=== PATIENT | female | born 1960 | race Caucasian/White ===

== ENCOUNTER → 2016-12-29 | Outpatient (CLI) | payer OTHER ==
[~2016-12-29] MED LIST: CHOL1000 PO; LISI-729 PO
== END | disposition home or self-care (01) ==
LOC: C.PAPS 11:49
PROVIDERS: ATTEND Physician Assistant
DX: Z01.419 Encounter for gynecological examination (general) (routine) without abnormal findings (principal)

== ENCOUNTER → 2016-12-29 | Outpatient (CLI) | payer OTHER ==
--- NOTE | 2016-12-29 13:56 | MAMMOGRAPHY REPORT ---
BILATERAL DIGITAL SCREENING MAMMOGRAM TOMOSYNTHESIS WITH CAD: 12/29/2016 CLINICAL HISTORY: Routine screening. Patient has no complaints. TECHNIQUE: Breast tomosynthesis in addition to standard 2D mammography was performed. Current study was also evaluated with a Computer Aided Detection (CAD) system. COMPARISON: Comparison is made to exams dated: 10/15/2015 mammogram, 09/19/2014 mammogram, 09/18/2013 [place], 09/15/2012 mammogram, 09/14/2011 mammogram, and 08/04/2010 mammogram - [facility]. BREAST COMPOSITION: There are scattered areas of fibroglandular density in both breasts. FINDINGS: No suspicious masses, calcifications, or areas of architectural distortion are noted in e ither breast. There has been no significant interval change compared to prior exams. Small nodular asymmetry seen within the right medial breast on the cc view is stable dating back to at least the and 2007 exams. IMPRESSION: ACR BI-RADS CATEGORY 2: BENIGN There is no mammographic evidence of malignancy. A 1 year screening mammogram is recommended. The p atient will receive written notification of the results. Approximately 10% of breast cancers are not detected with mammography. A negative mammographic repor t should not delay biopsy if a clinically suggestive mass is present. Kady Field M.D. /:12/29/2016 13:31:29 Ripsaw Operator: Nadja Hu RT(R)(M), [facility] letter sent: Normal 1/2 BI-RADS Code: ACR BI-RADS Category 2: Benign
== END | disposition home or self-care (01) ==
LOC: C.MAMM 07:56
PROVIDERS: ATTEND Physician Assistant
DX: Z12.31 Encounter for screening mammogram for malignant neoplasm of breast (principal)

== ENCOUNTER → 2017-02-11 | Outpatient (CLI) | payer OTHER ==
[2017-02-11 12:21] LABS: HEMATOCRIT 38.5 % (37-47); MEAN CELL VOLUME 88.9 fL (80-100); MEAN CORPUSCULAR HEMOGLOBIN 29.3 pg (25-34); MEAN PLATELET VOLUME 9.4 fL (7.4-10.4); PLATELET COUNT 261 K/uL (130-400); RED BLOOD COUNT 4.33 M/uL (4.2-5.4); WHITE BLOOD COUNT 3.68 K/uL (4.8-10.8)
[2017-02-11 12:29] LABS: ALT/SGPT 22 U/L (12-78); BLOOD UREA NITROGEN 12 mg/dl (7-18); BUN/CREATININE RATIO 17.5 (10-20); CARBON DIOXIDE 28 mmol/L (21-32); CHLORIDE 107 mmol/L (98-107); CHOLESTEROL 183 mg/dl (0-200); CREATININE 0.67 mg/dl (0.60-1.20); GLUCOSE 91 mg/dl (70-99); POTASSIUM 3.6 mmol/L (3.5-5.1); SODIUM 143 mmol/L (136-145); TRIGLYCERIDES 102 mg/dl (0-150); VERY LOW DENSITY LIPOPROT CALC 20 mg/dl
[2017-02-11 12:39] LABS: CHOLESTEROL/HDL RATIO 2.7; HDL CHOLESTEROL 68 mg/dl; LDL CHOLESTEROL CALCULATED 95 mg/dl
== END | disposition home or self-care (01) ==
LOC: C.LAB1850 10:59
PROVIDERS: ATTEND Obstetrics & Gynecology
DX: I10 Essential (primary) hypertension (principal); N95.0 Postmenopausal bleeding

== ENCOUNTER → 2017-02-28 | Day surgery (SDC) | payer OTHER ==
[2017-02-10 09:02] VITALS: Ht 157.5 cm; Wt 72.7 kg
[~2017-02-28] VITALS: Ht 157.5 cm; Wt 72.7 kg
[~2017-02-28] MED LIST changes: +ATROPINE SULFATE 0.1 MG/ML 5ML SYR IV PRN; +DEXAMETHASONE SOD INJ 4 MG/ML VIAL ONE; +EpHEDrine SULFATE INJ 50 MG/ML AMP IV PRN; +FENTANYL CITRATE INJ 50 MCG/1 ML 2 ML VIAL IV PRN; +FENTANYL CITRATE INJ 50 MCG/1 ML 2 ML VIAL ONE; +IBUPROFEN 600 MG TAB PO PRN; +KETOROLAC TROMETHAMINE 30 MG/ML VIAL IV. PRN; +LACTATED RINGER'S 1000ML 1,000 ML IV SCH; +LIDOCAINE HCL 2% 2 ML VIAL (20MG/ML) ONE; +LIDOCAINE HCL 2% LOCAL 20 ML VIAL ONE; +MIDAZOLAM HCL 1 MG/ML 2ML VIAL ONE; +ONDANSETRON INJ 2 MG/ML 2 ML VIAL IV PRN; +ONDANSETRON INJ 2 MG/ML 2 ML VIAL ONE; +OXYCODONE/ACETAMINOPHEN 5-325 TAB PO PRN; +PROPOFOL IV EMULSION 10 MG/ML 20 ML VIAL IV ONE; +SODIUM CHLORIDE 0.9% 1000ML 1,000 ML IV SCH
--- NOTE | 2017-02-28 07:47 | History & Physical Bridge - [place] ---
H&P Re-Evaluation Bridge Note: I have examined the patient, reviewed the History & Physical and in the interval since the performance of the History & Physical I have noted the following changes of clinical significance: She was given cipro for possible UTI by her PCP, the culture and dip was negative.
--- NOTE | 2017-02-28 08:27 | Discharge Instructions ---
Discharge Instructions Date of Service Feb 28, 2017. Admission Reason for Admission: Post Menopausal Bleeding Discharge Discharge Diagnosis / Problem: after surgery Discharge Goals Goal(s): Routine recovery after surgery Activity Recommendations Activity Limitations: as noted below . Instructions / Follow-Up Instructions / Follow-Up ACTIVITY RECOMMENDATIONS: * Avoid tampons, douching, hot tubs, pools, and intercourse until bleeding has stopped. * May shower as usual. * No strenuous activity for 24-48 hours. After 24-48 hours, you may do anything you feel like doing (driving and sports are okay). SPECIAL CARE INSTRUCTIONS: Special Diet: * Mild nausea may occur in the immediate post-operative period. * Take clear liquids such as tea, cola or bouillon until all nausea has subsided; you may then resume your normal diet. Special Care: * Light bleeding and vaginal spotting can last from a few days to 3-4 weeks. Call your doctor if bleeding becomes heavier than the heaviest part of your period. * Check your temperature twice a day for one week. If it goes above 100.4 degrees Fahrenheit (38.0 Celsius), notify your doctor. * Call your doctor's office for an appointment for 2 weeks after your surgery. FOLLOW-UP VISIT: Call your doctor's office for an appointment for 2 weeks after your surgery. Current Hospital Diet Patient's current hospital diet: Discharge Diet Recommended Diet: Regular Diet Procedures Procedures Performed: Dilatation And Curettage, Hysteroscopy, Polypectomy Pending Studies Studies pending at discharge: yes List of pending studies: pathology Laboratory Results Lipid Panel Test 02/11/17 11:03 Range/Units Triglycerides Level 102 0-150 mg/dl Cholesterol Level 183 0-200 mg/dl HDL Cholesterol 68 mg/dl Cholesterol/HDL Ratio 2.7 LDL Cholesterol, Calculated 95 mg/dl Medical Emergencies . Who to Call and When: Medical Emergencies: If at any time you feel your situation is an emergency, please call 911 immediately. . Non-Emergent Contact Non-Emergency issues call your: Block Greaser . . "Provider Documentation" section prepared by Gunjan Rice. . VTE Core Measure Inpt VTE Proph given/why not?: Treatment not indicated
[2017-02-28 08:28] VITALS: TEMP 37
--- NOTE | 2017-02-28 08:28 | [facility] Post Operative Brief Note ---
Immediate Operative Summary Operative Date Feb 28, 2017. Pre-Operative Diagnosis Post Menopausal Bleeding, abnormal u/s of pelvis Post-Operative Diagnosis same Procedure(s) Performed Dilatation And Curettage, Hysteroscopy, Polypectomy Surgeon Dr. Delbert Rice Sugar Refiner Surgeon(s) 0 Estimated Blood Loss 0 Findings fundal polyp, sessile possible right WICHO polyp, moderate curettings. normal tubal ostia bilaterally. saline deficit 90cc Fluids (cc crystalloids) 400 Specimens A. Endometrial Curettings and Polyp Drains none Anesthesia IV sedation and paracervical block Complication(s) None Disposition Recovery Room / PACU
--- NOTE | 2017-02-28 08:46 | OPERATIVE REPORT ---
DATE OF OPERATION: 02/28/2017 PREOPERATIVE DIAGNOSES: 1. Postmenopausal bleeding. 2. Abnormal ultrasound findings. POSTOPERATIVE DIAGNOSES: Same. PROCEDURES: 1. Dilatation and curettage. 2. Hysteroscopy. 3. endometrial polypectomy. SURGEON: Dr. Gunjan Rice. INSURANCE POLICY CLERK: None. ANESTHESIA: IV sedation and paracervical block. INDICATIONS: A 56-year-old postmenopausal female with postmenopausal bleeding. Ultrasound suggested 2 endometrial polyps. She desired surgical evaluation. FINDINGS: Uterus sounded to 7.5 cm. Normal tubal ostia bilaterally. The appearance of a polyp emanating from the fundus on hysteroscopy and a possibly sessile polyp on the right lower uterine segment. Moderate curettings and polypoid tissue removed and sent for pathological evaluation. Saline hysteroscopic fluid deficit 90 mL. DESCRIPTION OF PROCEDURE: The patient was taken to the operating room and identified. After adequate sedation, she was placed in dorsal lithotomy position and prepped and draped in the usual sterile fashion. The cervix was visualized with a weighted speculum and anterior retractor and was grasped at its anterior lip with an Allis clamp. A paracervical block of approximately 20 mL of 2% plain lidocaine was administered. The cervix was then sequentially dilated using Kandice dilators to 21. The hysteroscope primed with saline medium was gently placed through the cervical os into the uterine cavity with the findings as noted above. The uterus was cleared of its contents using a polyp forceps as well as the serrated curette. The camera was used to visualize the cavity to ensure adequate removal of polypoid lesions. At this point, the procedure was terminated. The patient was returned to supine position after all vaginal instruments were removed. She was awoken from anesthesia and transferred to the recovery room in stable condition. All sponge, lap and needle counts were correct x2. I attest to the content of the Intraoperative Record and any orders documented therein. Any exceptions are noted below. MTDD
[2017-02-28 08:48] VITALS: BP 117/77; PULSE 71; O2SAT 100
--- NOTE | 2017-02-28 08:52 | Anesthesia Progress Nt - [facility] ---
Anesthesia Post Op Note Date & Time Feb 28, 2017 at 08:52 Vital Signs Pain Intensity: 2 Vital Signs Past 12 Hours Date Time Temp Pulse Resp B/P (MAP) Pulse Ox O2 Delivery O2 Flow Rate FiO2 02/28/17 08:48 71 16 117/77 (90) 100 Room Air 02/28/17 08:28 37.0 80 12 116/75 (89) 94 Room Air 02/28/17 06:51 36.9 79 18 131/77 (95) 98 Room Air Notes Mental Status: alert / awake / arousable, participated in evaluation Pt Amnestic to Procedure: Yes Nausea / Vomiting: adequately controlled Pain: adequately controlled Airway Patency, RR, SpO2: stable & adequate BP & HR: stable & adequate Hydration State: stable & adequate Anesthetic Complications: no major complications apparent
== END | disposition home or self-care (01) ==
LOC: X.SURG 06:36
PROVIDERS: ATTEND Obstetrics & Gynecology
DX: N84.0 Polyp of corpus uteri (principal); Z79.899 Other long term (current) drug therapy

== ENCOUNTER → 2018-01-03 | Outpatient (CLI) | payer OTHER ==
[~2018-01-03] MED LIST changes: -ATROPINE SULFATE 0.1 MG/ML 5ML SYR IV PRN; -DEXAMETHASONE SOD INJ 4 MG/ML VIAL ONE; -EpHEDrine SULFATE INJ 50 MG/ML AMP IV PRN; -FENTANYL CITRATE INJ 50 MCG/1 ML 2 ML VIAL IV PRN; -FENTANYL CITRATE INJ 50 MCG/1 ML 2 ML VIAL ONE; -IBUPROFEN 600 MG TAB PO PRN; -KETOROLAC TROMETHAMINE 30 MG/ML VIAL IV. PRN; -LACTATED RINGER'S 1000ML 1,000 ML IV SCH; -LIDOCAINE HCL 2% 2 ML VIAL (20MG/ML) ONE; -LIDOCAINE HCL 2% LOCAL 20 ML VIAL ONE; -MIDAZOLAM HCL 1 MG/ML 2ML VIAL ONE; -ONDANSETRON INJ 2 MG/ML 2 ML VIAL IV PRN; -ONDANSETRON INJ 2 MG/ML 2 ML VIAL ONE; -OXYCODONE/ACETAMINOPHEN 5-325 TAB PO PRN; -PROPOFOL IV EMULSION 10 MG/ML 20 ML VIAL IV ONE; -SODIUM CHLORIDE 0.9% 1000ML 1,000 ML IV SCH
--- NOTE | 2018-01-03 14:24 | MAMMOGRAPHY REPORT ---
BILATERAL DIGITAL SCREENING MAMMOGRAM TOMOSYNTHESIS WITH CAD: 01/03/2018 CLINICAL HISTORY: Routine screening. TECHNIQUE: Breast tomosynthesis in addition to standard 2D mammography was performed. Current study was also evaluated with a Computer Aided Detection (CAD) system. COMPARISON: Comparison is made to exams dated: 12/29/2016 mammogram, 10/15/2015 mammogram, 09/[place], 09/18/2013 mammogram, 09/15/2012 mammogram, and 09/14/2011 mammogram - [facility] . BREAST COMPOSITION: There are scattered areas of fibroglandular density in both breasts. FINDINGS: There is a possible subtle area of architectural distortion in the medial, middle to poste rior right breast, best seen on CC tomosynthesis slice 25/72, not definitely seen on the MLO tomosynt hesis images. Additional spot compression tomosynthesis views and possible ultrasound are recommende d. There is stable subcentimeter nodular asymmetry in the medial right breast anterior to the area of po ssible architectural distortion. A few stable benign-appearing calcifications. No other suspicious m ass, architectural distortion or cluster of microcalcifications is seen. IMPRESSION: ACR BI-RADS CATEGORY 0: INCOMPLETE EVALUATION: NEED ADDITIONAL IMAGING EVALUATION The possible subtle area of architectural distortion in the medial right breast needs additional eval uation. The patient will be called to schedule an appointment. Approximately 10% of breast cancers are not detected with mammography. A negative mammographic report should not delay biopsy if a clinically suggestive mass is present. Ophelia Livingston M.D. ay/:01/03/2018 08:34:59 Glycerine Plant Operator: Karolina TREJO(R)(M), [facility] letter sent: Addl Imaging 0 BI-RADS Code: ACR BI-RADS Category 0: Incomplete Evaluation: Need Additional Imaging Evaluation
== END | disposition home or self-care (01) ==
LOC: C.MAMM 07:56
PROVIDERS: ATTEND Family Medicine
DX: Z12.31 Encounter for screening mammogram for malignant neoplasm of breast (principal)

== ENCOUNTER → 2018-01-11 | Outpatient (CLI) | payer OTHER ==
--- NOTE | 2018-01-11 15:46 | MAMMOGRAPHY REPORT ---
UNILATERAL RIGHT DIGITAL DIAGNOSTIC MAMMOGRAM TOMOSYNTHESIS: 01/11/2018 CLINICAL HISTORY: Callback from screening mammogram for possible right breast architectural distortio n. TECHNIQUE: Breast tomosynthesis in addition to standard 2D mammography was performed. Spot compress ion right CC 2D and tomosynthesis images and full right CC tomosynthesis images were obtained. COMPARISON: Comparison is made to exams dated: 01/03/2018 mammogram, 12/29/2016 mammogram, 10/[place]/2015 [place], 09/19/2014 mammogram, 09/18/2013 mammogram, and 09/15/2012 mammogram - [facility] BREAST COMPOSITION: There are scattered areas of fibroglandular density in the right breast. FINDINGS: The previously described possible area of architectural distortion seen within the right me dial breast on the CC tomosynthesis images does not persist on the additional images. Normal fibrogl andular tissue is seen in this region, without evidence of a suspicious mass or other suspicious abno rmality. Nodular asymmetry seen within the right medial breast on the cc view is stable compared to multiple prior exams. IMPRESSION: ACR BI-RADS CATEGORY 2: BENIGN The previously described possible area of architectural distortion within the right breast does not p ersist on the additional images. Findings are benign and compatible with normal fibroglandular tissu e. There is no mammographic evidence of malignancy. A 1 year screening mammogram is recommended. Th e patient has been verbally notified of the results. Approximately 10% of breast cancers are not detected with mammography. A negative mammographic report should not delay biopsy if a clinically suggestive mass is present. Kady Field M.D. ah/:01/11/2018 09:44:57 Logistics Operations Manager: Karolina TREJO(R)(M), [facility] letter sent: Normal 1/2 BI-RADS Code: ACR BI-RADS Category 2: Benign
== END | disposition home or self-care (01) ==
LOC: C.MAMM 09:20
PROVIDERS: ATTEND Family Medicine
DX: R92.8 Other abnormal and inconclusive findings on diagnostic imaging of breast (principal)